=== PATIENT | female | born 1995 | race Two or more races ===

== ENCOUNTER 2018-04-20 06:16 | Emergency (ER) | payer SELFPAY ==
[~2018-04-20] VITALS: Ht 160 cm; Wt 64.4 kg
[2018-04-20 06:20] VITALS: Ht 160 cm; Wt 64.4 kg
[2018-04-20 07:48] VITALS: BP 119/78
== END 2018-04-20 07:48 | disposition home or self-care (01) ==
LOC: ED 06:16
DX: F50.2 Bulimia nervosa (principal); R10.13 Epigastric pain